=== PATIENT | male | born 1990 | race Caucasian/White ===

== ENCOUNTER 2022-08-05 00:50 | Inpatient (IN) | payer SELFPAY ==
[2022-08-05] MEDS ORDERED: Morphine 2 MG/ML VIAL SLOW IVP PRN (01:36)
[2022-08-05] MEDS ORDERED: HYDROcodone/Acetaminophen 5/325 mg Tablet PO PRN (01:38)
[2022-08-05] MEDS ORDERED: Acetaminophen 325 MG TAB PO PRN ×2 (01:39→01:40)
[2022-08-05] MEDS ORDERED: Ibuprofen 200 MG TAB PO PRN (01:41)
[2022-08-05 01:43] VITALS: BMI 29.0
[2022-08-05] MEDS: Ketorolac Tromethamine 30 MG/ML VIAL IVP SCH ×4 (02:01→21:50)
[2022-08-05] MEDS: Sodium Chloride 0.9% 1,000 ML IV SCH ×3 (02:02→18:31)
[2022-08-05] MEDS: Meropenem 1 GM in Sodium Chloride 0.9% 100 ML IVPB SCH ×3 (02:19→18:31)
[2022-08-05] MEDS: Morphine 4 MG/ML VIAL SLOW IVP PRN ×3 (04:39→18:37)
[2022-08-05 04:58] LABS: Hemoglobin 16.1 g/dL (14.0-18.0); Mean Corpuscular HGB CONC 32.9 g/dL (32.0-36.0); Mean Corpuscular Hemoglobin 30.6 pg (27.0-31.0); Mean Corpuscular Volume 93.1 fl (78.0-98.0); Mean Platelet Volume 6.8 fL (7.4-10.4); Platelet Count 209 10x3/uL (130-400); RBC Distribution Width 12.2 % (11.5-14.5); Red Blood Cell (RBC) Count 5.27 mill/uL (4.70-6.10); White Blood Cell (WBC) Count 18.3 10x3/uL (4.8-10.8)
[2022-08-05 05:23] LABS: Anion Gap 15 mmol/L (10-20); BUN (Urea Nitrogen) 10 mg/dL (8.9-20.6); Calc. Creatinine Clearance 176 mL/min (70-130); Calcium 8.8 mg/dL (7.8-10.44); Carbon Dioxide 19 mmol/L (22-29); Chloride 106 mmol/L (98-107); Estimated GFR 116; Glucose 116 mg/dL (70-105); Potassium 3.9 mmol/L (3.5-5.1); Sodium 136 mmol/L (136-145)
[2022-08-05 05:47] LABS: Band 19 % (5-11); Lymphocytes 8 % (21-51); MDiff Complete? YES; Monocytes 10 % (0-10); Neutrophil 63 % (42-75); Platelet Morphology Comment Appears Adequate; RBC Morphology Normal
[2022-08-05] MEDS: Famotidine/PF 20 mg/2ml Vial SLOW IVP SCH ×2 (07:38→21:50)
[2022-08-05] MEDS: HYDROcodone/Acetaminophen 5/325 mg Tablet PO PRN ×2 (09:18→21:50)
[2022-08-06] MEDS ORDERED: Ketorolac Tromethamine 30 MG/ML VIAL IVP PRN (02:00)
[2022-08-06] MEDS: HYDROcodone/Acetaminophen 5/325 mg Tablet PO PRN ×2 (03:09→08:35)
[2022-08-06] MEDS: Sodium Chloride 0.9% 1,000 ML IV SCH (03:10)
[2022-08-06] MEDS: Meropenem 1 GM in Sodium Chloride 0.9% 100 ML IVPB SCH ×2 (03:10→10:30)
[2022-08-06 06:02] LABS: #Eosinphils 0.2 thou/uL (0.0-0.7); #Lymphocytes 1.8 thou/uL (1.20-3.40); #Monocytes 0.9 thou/uL (0.11-0.59); #Neutrophils 7.4 thou/uL (1.40-6.50); %Basophils 0.3 % (0.0-1.0); %Eosinophils 1.8 % (0.0-10.0); %Lymphocytes 17.4 % (21.0-51.0); %Monocytes 8.5 % (0.0-10.0); Hemoglobin 12.7 g/dL (14.0-18.0); Mean Corpuscular HGB CONC 29.9 g/dL (32.0-36.0); Mean Corpuscular Hemoglobin 28.1 pg (27.0-31.0); Mean Corpuscular Volume 93.7 fl (78.0-98.0); Mean Platelet Volume 6.7 fL (7.4-10.4); Platelet Count 223 10x3/uL (130-400); Red Blood Cell (RBC) Count 4.54 mill/uL (4.70-6.10); White Blood Cell (WBC) Count 10.3 10x3/uL (4.8-10.8)
[2022-08-06] MEDS: Famotidine/PF 20 mg/2ml Vial SLOW IVP SCH (08:37)
[2022-08-06] MEDS ORDERED: HYDROcodone/Acetaminophen 7.5/325 mg Tablet PO PRN ×2 (12:30)
[2022-08-06] MEDS ORDERED: Ondansetron ODT 4 MG TAB PO PRN (14:34)
[2022-08-06] MEDS ORDERED: Ondansetron PF 4 MG/2 ML Vial IVP PRN (14:34)
[2022-08-06 16:18] VITALS: BP 114/72; TEMP 99
[2022-08-08] MEDS ORDERED: Ibuprofen 200 MG TAB PO PRN (08:00)
== END 2022-08-06 16:27 | disposition home or self-care (01) | DRG 373 ==
LOC: SURG A 00:50
PROVIDERS: ADMIT Surgery; ATTEND Surgery
DX: K35.32 Acute appendicitis with perforation, localized peritonitis, and gangrene, without abscess (principal); Z88.0 Allergy status to penicillin
CPT/HCPCS: 36415; 80048; 85025; J1885; J2185; J2270; J3490; J7050; S0028